=== PATIENT | female | born 1990 | race African-American/Black ===

== ENCOUNTER 2016-12-30 23:10 | Emergency (ER) | payer MEDICAID ==
[~2016-12-30] VITALS: Ht 175.3 cm; Wt 166.5 kg
[2016-12-31 00:15] VITALS: BP 136/73
[2016-12-31 01:07] VITALS: BP 112/76
--- NOTE | 2017-01-02 07:59 | Emergency Room Report ---
History of Present Illness General Chief Complaint: General Complaint Source: Patient Present Illness HPI This was a second patient presenting overnight for request of staph infection check Patient reports that she was in contact with the family who have staph infection She herself does not have any symptoms denies any fevers or chills denies any rash denies any chest pain shortness of breath she also has had some nonspecific irregular cycle of menstruation and was concern about possible denies any vaginal discharge or pelvic pain Allergies: Coded Allergies: No Known Allergies (Unverified , 12/30/16) Patient History Past Medical History: see triage record Pertinent Family History: none Last Menstrual Period: Dec 07 : 0 Reviewed Nursing Documentation: PMH: Agreed, PSxH: Agreed Review of Systems All Other Systems: negative except mentioned in HPI Physical Exam Vital Signs Date Time Temp Pulse Resp B/P (MAP) Pulse Ox O2 Delivery O2 Flow Rate FiO2 12/30/16 23:26 97.9 83 18 136/73 98 Room Air Sp02 EP Interpretation: reviewed, normal General Appearance: well appearing, no apparent distress Head: normocephalic, atraumatic Eyes: bilateral eye PERRL, bilateral eye EOMI ENT: hearing grossly normal, normal pharynx, TMs + canals normal, uvula midline Neck: full range of motion, supple, no meningismus, no bony tend Respiratory: lungs clear, normal breath sounds, no rhonchi, no respiratory distress, no retraction, no accessory muscle use Cardiovascular #1: normal peripheral pulses, regular rate, rhythm, no edema, no gallop, no JVD, no murmur Gastrointestinal: normal bowel sounds, non tender, soft, no mass, no organomegaly, non-distended, no guarding, no hernia, no pulsatile mass, no rebound Genitourinary: no CVA tenderness Musculoskeletal: normal inspection Neurologic: oriented x3, responsive, 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, motor strength/ tone normal, sensory intact Psychiatric: mood/affect normal Skin: normal color, no rash, warm/dry, palpation normal Lymphatic: normal inspection, no adenopathy Medical Decision Making Diagnostic Impression: Primary Impression: Encounter for generalized patient complaints Additional Impression: test negative ER Course Patient had a fairly benign abdominal examination Does not appear septic or toxic test is negative I did not feel that any further workup is required emergently and patient is stable for close followup Labs Test 12/31/16 00:25 Urine HCG, Qualitative Negative Last Vital Signs Date Time Temp Pulse Resp B/P (MAP) Pulse Ox O2 Delivery O2 Flow Rate FiO2 12/31/16 01:07 85 18 112/76 100 Room Air 12/31/16 00:15 97.9 Status: improved Disposition: HOME, SELF-CARE Condition: Stable Referrals: NON PHYSICIAN (PCP) Patient Instructions: Test Information Additional Instructions: Patient is provided with the discharge instructions notified to follow up with primary doctor in the next 2-3 days otherwise return to the er with any worsening symptoms. Please note that this report is being documented using [employer] technology. This can lead to erroneous entry secondary to incorrect interpretation by the dictating instrument. JOCELYNE MAKI D.O. Jan 02, 2017 07:59
== END 2016-12-31 01:07 | disposition home or self-care (01) ==
LOC: EMR 23:58
DX: Z04.8 Encounter for examination and observation for other specified reasons (principal); Z32.02 Encounter for pregnancy test, result negative
CPT/HCPCS: 81025; 99283